=== PATIENT | female | born 1990 | race Caucasian/White ===

== ENCOUNTER → 2017-07-07 | Outpatient (CLI) | payer OTHER, BC ==
[~2017-07-07] MED LIST: ALPR.5 PO; BUTASPCAFT PO; JUNEL PO; Naprosyn500 MG PO; Norco 5-325 Ta1 EACH PO; PROP10 PO
== END | disposition home or self-care (01) ==
LOC: LAB 16:12 → LAB SHORT 16:12
PROVIDERS: Obstetrics & Gynecology
DX: Z12.4 Encounter for screening for malignant neoplasm of cervix (principal)
CPT/HCPCS: G0123

== ENCOUNTER → 2018-12-12 | Outpatient (CLI) | payer BC ==
[2018-12-14 14:07] LABS: HPV 16 Negative (Negative); HPV 18 Negative (Negative); HPV OTHER HR TYPES Negative (Negative)
== END | disposition home or self-care (01) ==
LOC: LAB 15:14 → LAB SHORT 15:14
PROVIDERS: Obstetrics & Gynecology
DX: Z01.419 Encounter for gynecological examination (general) (routine) without abnormal findings (principal)
CPT/HCPCS: 87624; G0123

== ENCOUNTER → 2019-10-06 | Outpatient (CLI) | payer BC | END | disposition home or self-care (01) | LOC: LAB 19:39 → LAB SHORT 19:39 | DX: L08.9 Local infection of the skin and subcutaneous tissue, unspecified (principal) | CPT/HCPCS: 87070; 87205 ==

== ENCOUNTER 2024-03-02 11:01 | Emergency (ER) | payer OTHER, BC ==
[~2024-03-02] VITALS: Ht 154.9 cm; Wt 60.8 kg
[2024-03-02] MEDS ORDERED: NUVARING VAGIN1 EAC1 VG (11:10)
[2024-03-02 11:13] VITALS: BP 151/96
[2024-03-02] MEDS ORDERED: ONDA4ODT MM (11:28)
[2024-03-02] MEDS ORDERED: MECL25 PO (11:28)
== END 2024-03-02 12:04 | disposition home or self-care (01) ==
LOC: ER 11:01
DX: R42 Dizziness and giddiness (principal); F17.210 Nicotine dependence, cigarettes, uncomplicated; G43.909 Migraine, unspecified, not intractable, without status migrainosus
CPT/HCPCS: 99283